=== PATIENT | male | born 1995 | race Caucasian/White ===

== ENCOUNTER 2023-04-11 08:11 | Emergency (ER) | payer OTHER, SELFPAY ==
[2023-04-11 08:20] VITALS: BP 131/76; PULSE 95; RESP 18; TEMP 37.4; O2SAT 97
--- NOTE | 2023-04-11 08:37 | ED.ALLEREA ---
HPI - Allergic Reaction General Chief complaint: Allergic Reaction Stated complaint: alergic reaction to prescription Source: patient and RN notes reviewed History of Present Illness HPI narrative: 27-year-old male presents to urgent care complaints of a generalized rash that he woke up with this morning. Patient states he was placed on Bactrim yesterday for ?a spider bite. ? Patient states he had 2 doses yesterday and did not take any this morning. Patient states his feet itch. Denies any vomiting, fevers, chest pain, shortness of breath, or oral swelling. Patient has not taking anything for his rash. Related Data Home Medications Medication Instructions Recorded Confirmed citalopram 20 mg tablet 20 mg PO DAILY 04/11/23 04/11/23 Allergies Allergy/AdvReac Type Severity Reaction Status Date / Time sulfamethoxazole Allergy Intermediate Rash Verified 04/11/23 08:40 [From Bactrim] trimethoprim [From Bactrim] Allergy Intermediate Rash Verified 04/11/23 08:40 Review of Systems Review of Systems: CONSTITUTIONAL: Denies fever, chills, or sweats. EYES: Denies visual changes, redness, or discharge. ENT: Denies otalgia and sore throat CARDIOVASCULAR: Denies chest pain, palpitations, or edema. RESPIRATORY: Denies cough or dyspnea. GASTROINTESTINAL: Denies abdominal pain, nausea, vomiting, or diarrhea. GENITOURINARY: Denies dysuria or hematuria. SKIN: Rash MUSCULOSKELETAL: Denies back pain, joint pain, or myalgia. NEUROLOGIC: Denies headache, numbness, or weakness. Pertinent positives per HPI. PMFSH Comments At the time of my signature, I reviewed and agree with the nursing past medical, surgical, social, and family history. There is no relevant family history pertinent to the patient complaint. Exam Narrative: GENERAL: This is a well-nourished, well-developed patient, in no apparent distress. HEAD: normocephalic, atraumatic. EYES: Sclera clear/white. Vision is grossly intact. EARS: External ears normal, auditory canals clear and without drainage. Hearing grossly intact. NOSE: External nose normal with no obvious nasal discharge, nares without redness, no rhinorrhea. THROAT: Mucous membranes moist, posterior pharynx clear. NECK: Neck supple, non-tender without lymphadenopathy, masses or thyromegaly. CARDIOVASCULAR: Regular rate and rhythm without murmurs, gallops, or rubs. RESPIRATORY: Clear to auscultation. Breath sounds equal bilaterally. No wheezes, rales, or rhonchi. GASTROINTESTINAL: Abdomen soft, non-tender, nondistended. Bowel sounds are active. No hepato-splenomegaly, or palpable masses. No guarding. SKIN: erythremic, generalized, exanthem, mostly on lower extremities and trunk. Area of cellulitis to LLQ of abdomen were pt was previously dx with cellulitis yesterday; no drainage. the erythremia has not exceeded the purple marking that is encircling the cellulitis; area is approximately 5 cm x 3 cm. NEURO: awake, alert, and oriented to person, place and time. There were no obvious focal neurologic abnormalities. EXTREMITIES: No clubbing, cyanosis, or edema. No joint tenderness, effusion, or edema noted. BACK: Nontender without deformity or crepitus. No flank tenderness. Course Course Level of Care: Express Care Visit Vital Signs Vital signs: Vital Signs Temperature 99.3 F 04/11/23 08:20 Pulse Rate 95 04/11/23 08:20 Respiratory Rate 18 04/11/23 08:20 Blood Pressure 131/76 04/11/23 08:20 Pulse Oximetry 97 04/11/23 08:20 Oxygen Delivery Room Air 04/11/23 08:20 Temperature 99.3 F 04/11/23 08:20 Pulse Rate 95 04/11/23 08:20 Respiratory Rate 18 04/11/23 08:20 Blood Pressure 131/76 04/11/23 08:20 Pulse Oximetry 97 04/11/23 08:20 Oxygen Delivery Room Air 04/11/23 08:20 reviewed. MDM - Allergic Reaction MDM Narrative Medical decision making narrative: It appears you are allergic to Bactrim (sulfa drug). Stop taking the Bactrim. Start taking the cephal
== END 2023-04-11 08:45 | disposition home or self-care (01) ==
PROVIDERS: Emergency Provider Nurse Practitioner Family; PCP Family Medicine
DX: L27.0 Generalized skin eruption due to drugs and medicaments taken internally (principal); T36.8X5A Adverse effect of other systemic antibiotics, initial encounter; F41.9 Anxiety disorder, unspecified
CPT/HCPCS: 99203; G0463